=== PATIENT | female | born 1990 | race American Indian/Alaskan Native ===

== ENCOUNTER 2021-11-20 09:53 | Emergency (ER) | payer SELFPAY ==
[2021-11-20 10:21] VITALS: BP 109/64
--- NOTE | 2021-11-20 10:34 | Emergency Department Report ---
ED ENT HPI - General Chief complaint: Skin/Abscess/Foreign Body Stated complaint: TOOTH ACHE/BROKEN TOOTH/INFECTION Time Seen by Provider: 11/20/21 10:30 Source: patient Mode of arrival: Ambulatory Limitations: No Limitations - History of Present Illness Initial comments: 31-year-old comes to the ER complaining of right molar lower dental pain. She does have gingival abscess. No Ludewig's. She has a fractured molar. ABCs intact. Controlling secretions. Taking p.o. She has not called her dentist but knows that she needs to see 1. She is ambulatory toxic [id number] on arrival MD complaint: tooth pain -: Gradual, days(s) Consistency: constant Improves with: none Worsens with: none Associated Symptoms: gum swelling, toothache. denies: fever, cough, pain with swallowing, sore throat, tinnitus, hearing loss, discharge from ear, rhinorrhea - Related Data Previous Rx's Medication Instructions Recorded Last Taken Type Amoxicillin [Trimox CAP] 500 mg PO BID #20 capsule 11/20/21 Unknown Rx Allergies Allergy/AdvReac Type Severity Reaction Status Date / Time No Known Allergies Allergy Verified 11/02/13 14:15 ED Dental HPI - General Chief complaint: Skin/Abscess/Foreign Body Stated complaint: TOOTH ACHE/BROKEN TOOTH/INFECTION Time Seen by Provider: 11/20/21 10:30 Source: patient Mode of arrival: Ambulatory Limitations: No Limitations - Related Data Previous Rx's Medication Instructions Recorded Last Taken Type Amoxicillin [Trimox CAP] 500 mg PO BID #20 capsule 11/20/21 Unknown Rx Allergies Allergy/AdvReac Type Severity Reaction Status Date / Time No Known Allergies Allergy Verified 11/02/13 14:15 ED Review of Systems ROS: Stated complaint: TOOTH ACHE/BROKEN TOOTH/INFECTION Other details as noted in HPI Comment: All other systems reviewed and negative ED Past Medical Hx - Past Medical History Previous Medical History?: Yes Hx Asthma: Yes Additional medical history: endometriosis - Surgical History Past Surgical History?: Yes Additional Surgical History: - Family History Family history: no significant - Social History Smoking Status: Current Some Day Smoker Substance Use Type: None - Medications Home Medications: Home Medications Medication Instructions Recorded Confirmed Last Taken Type Amoxicillin [Trimox CAP] 500 mg PO BID #20 capsule 11/20/21 Unknown Rx ED Physical Exam - General Limitations: No Limitations General appearance: alert, in no apparent distress - Head Head exam: Present: atraumatic, normocephalic - Eye Eye exam: Present: normal appearance - ENT ENT exam: Present: mucous membranes moist - Expanded ENT Exam Expanded Mouth exam: Absent: drooling, trismus, muffled voice Teeth exam: Present: dental caries 1 - Other (Fracture) 2 - Other (Abscess) - Neck Neck exam: Present: normal inspection - Respiratory Respiratory exam: Present: normal lung sounds bilaterally. Absent: respiratory distress - Cardiovascular Cardiovascular Exam: Present: regular rate, normal rhythm. Absent: systolic murmur, diastolic murmur, rubs, gallop - GI/Abdominal GI/Abdominal exam: Present: soft, normal bowel sounds - Extremities Exam Extremities exam: Present: normal inspection - Back Exam Back exam: Present: normal inspection - Neurological Exam Neurological exam: Present: alert, oriented X3 - Psychiatric Psychiatric exam: Present: normal affect, normal mood - Skin Skin exam: Present: warm, dry, intact, normal color. Absent: rash ED Course Vital Signs 11/20/21 10:18 Temperature 98.5 F Pulse Rate 86 Respiratory 18 Rate Blood Pressure 109/64 [Left] O2 Sat by Pulse 98 Oximetry ED Medical Decision Making - Medical Decision Making Pt educated on the importance of dental follow-up. Patient being sent home with a prescription for amoxicillin. She has been instructed on diet, activity, medications and follow-up. She will use [id number] Motrin and Tylenol for pain. She verbalizes understanding. Vital Signs 11/20/21 10:18 Temperature 98.5 F Pulse Rate 86 Respiratory 18 Rate Blood Pressure 109/64 [Left] O2 Sat by Pulse 98 Oximetry - Differential Diagnosis dental caries with abscess Critical care attestation.: If time is entered above; I have spent that time in minutes in the direct care of this critically ill patient, excluding procedure time. ED Disposition Clinical Impression: Pain, dental, Gingival abscess, Fractured tooth Disposition: HOME / SELF CARE / HOMELESS Is pt being admited?: No Does the pt Need Aspirin: No Condition: Stable Instructions: Preventive Dental Care, Adult Additional Instructions: med as ordered today motrin or tylenol for pain follow up with dentist josue Prescriptions: Amoxicillin [Trimox CAP] 500 mg PO BID #20 capsule Referrals: [facility] [Outside] - 3-5 Days [facility] [Outside] - 3-5 Days Forms: Work/School Release Form(ED) Time of Disposition: 10:33
== END 2021-11-20 15:32 | disposition home or self-care (01) ==
LOC: ED 09:53
DX: S02.5XXA Fracture of tooth (traumatic), initial encounter for closed fracture (principal); K08.89 Other specified disorders of teeth and supporting structures; K05.319 Chronic periodontitis, localized, unspecified severity; X58.XXXA Exposure to other specified factors, initial encounter; Y93.89 Activity, other specified; Y92.89 Other specified places as the place of occurrence of the external cause; Y99.8 Other external cause status
CPT/HCPCS: 99282